=== PATIENT | male | born 1970 | race Caucasian/White ===

== ENCOUNTER 2017-09-08 21:10 | Emergency (ER) | payer OTHER ==
[~2017-09-08] VITALS: Ht 167.6 cm; Wt 91.2 kg
[2017-09-08 21:31] VITALS: Ht 167.6 cm; Wt 91.2 kg
[2017-09-08 22:36] LABS: BASOPHIL % 0.5 % (0-2); PLATELET COUNT 225 x10^3mcL (130-400); RED CELL DISTRIBUTION WIDTH 13.4 % (11.5-14.5)
[2017-09-08 22:39] LABS: CARBON DIOXIDE 28.6 mmol/L (21-32); CREATININE SERUM 1.4 mg/dL (0.7-1.3); POTASSIUM SERUM 3.9 mmol/L (3.5-5.1)
[2017-09-08 22:52] LABS: ALBUMIN 3.7 g/dL (3.4-5.0); BILIRUBIN TOTAL 0.3 mg/dL (0.20-1.00); TOTAL PROTEIN, SERUM 7.4 g/dL (6.4-8.2)
[2017-09-09 03:16] VITALS: BP 134/79
== END 2017-09-09 03:16 | disposition short-term general hospital (02) ==
LOC: ED 21:10
PROVIDERS: Emergency Medicine
DX: I74.09 Other arterial embolism and thrombosis of abdominal aorta (principal); I73.9 Peripheral vascular disease, unspecified; R10.9 Unspecified abdominal pain; I11.0 Hypertensive heart disease with heart failure; I50.9 Heart failure, unspecified
CPT/HCPCS: J1644; Q9967